=== PATIENT | female | born 1955 | race Caucasian/White ===

== ENCOUNTER 2024-03-31 23:39 | Inpatient (IN) | payer MEDICARE ==
[2024-04-01 01:30] VITALS: BMI 19.6
[2024-04-01] MEDS ORDERED: Acetaminophen 325 MG TAB PO PRN (01:51)
[2024-04-01] MEDS ORDERED: Lorazepam 2 MG/ML VIAL IM PRN (01:59)
[2024-04-01] MEDS ORDERED: Melatonin 3 MG TAB PO PRN (03:14)
[2024-04-01 05:07] LABS: #Basophils 0.03 10x3/uL (0.0-0.2); #Eosinophils Less than 0.03 10x3/uL (0.0-0.7); %Basophils 0.3 % (0.0-1.0); %Eosinophils 0.1 % (0.0-10.0); %Lymphocytes 19.1 % (21.0-51.0); %Monocytes 9.7 % (0.0-10.0); %Neutrophils 70.5 % (42.0-75.0); Hematocrit 44.7 % (36.0-47.0); Hemoglobin 15.3 g/dL (12.0-16.0); Mean Corpuscular HGB CONC 34.2 g/dL (32.0-36.0); Mean Corpuscular Hemoglobin 34.5 pg (27.0-31.0); Mean Corpuscular Volume 100.7 fL (78.0-98.0); Mean Platelet Volume 9.1 fL (7.4-10.4); Platelet Count 129 10x3/uL (130-400); RBC Distribution Width 13.3 % (11.5-14.5); Red Blood Cell (RBC) Count 4.44 mill/uL (4.20-5.40)
[2024-04-01 05:13] LABS: Prothrombin Time 13.2 sec (12.0-14.7)
[2024-04-01 05:14] LABS: PTT 34.9 sec (22.9-36.1)
[2024-04-01 05:45] LABS: Lactic Acid 1.52 mmol/L (0.5-2.2)
[2024-04-01 05:54] LABS: Anion Gap 16 mmol/L (10-20); BUN (Urea Nitrogen) 6 mg/dL (9.8-20.1); Calc. Creatinine Clearance 65 mL/min (70-130); Calcium 9.5 mg/dL (7.8-10.44); Carbon Dioxide 24 mmol/L (23-31); Chloride 104 mmol/L (98-107); Estimated GFR 73; Glucose 111 mg/dL (80-115); Potassium 4.1 mmol/L (3.5-5.1); Sodium 140 mmol/L (136-145)
[2024-04-01] MEDS: Thiamine HCl 200 MG/2 ML VIAL SLOW IVP SCH (06:09)
[2024-04-01] MEDS ORDERED: FLU (Fluad Triv) TS24-25 (65UP)/MF59C/PF 45 MCG/0.5 ML Syringe IM ONE (09:00)
[2024-04-01] MEDS: Folic Acid 1 MG TAB PO SCH (09:39)
[2024-04-01] MEDS: Enoxaparin 80 MG (0.8 mL) SYRINGE SC SCH (09:39)
[2024-04-01] MEDS: Multivit, Therapeutic 1 TAB PO SCH (09:39)
[2024-04-01 14:43] LABS: Prothrombin Time 13.2 sec (12.0-14.7)
[2024-04-01 14:44] LABS: PTT 39.5 sec (22.9-36.1)
[2024-04-01] MEDS: cefTRIAXone\\ROCEPHIN 1 GM in Sodium Chloride 0.9% 100 ML IVPB SCH (18:24)
[2024-04-02 04:44] LABS: Anion Gap 14 mmol/L (10-20); BUN (Urea Nitrogen) 7 mg/dL (9.8-20.1); Calc. Creatinine Clearance 81 mL/min (70-130); Calcium 9.7 mg/dL (7.8-10.44); Carbon Dioxide 23 mmol/L (23-31); Chloride 104 mmol/L (98-107); Estimated GFR 94; Glucose 84 mg/dL (80-115); Potassium 3.3 mmol/L (3.5-5.1); Sodium 138 mmol/L (136-145)
[2024-04-02 04:54] LABS: Prothrombin Time 13.6 sec (12.0-14.7)
[2024-04-02 04:55] LABS: PTT 37.2 sec (22.9-36.1)
[2024-04-02 05:07] LABS: #Basophils 0.03 10x3/uL (0.0-0.2); %Basophils 0.4 % (0.0-1.0); %Eosinophils 0.6 % (0.0-10.0); %Lymphocytes 25.5 % (21.0-51.0); %Monocytes 9.1 % (0.0-10.0); %Neutrophils 64.1 % (42.0-75.0); Hematocrit 41.6 % (36.0-47.0); Hemoglobin 14.2 g/dL (12.0-16.0); Mean Corpuscular HGB CONC 34.1 g/dL (32.0-36.0); Mean Corpuscular Hemoglobin 34.5 pg (27.0-31.0); Mean Platelet Volume 9.4 fL (7.4-10.4); Platelet Count 112 10x3/uL (130-400); RBC Distribution Width 13.2 % (11.5-14.5); Red Blood Cell (RBC) Count 4.12 mill/uL (4.20-5.40)
[2024-04-02] MEDS: Potassium Chloride 20 MEQ TAB PO SCH (09:40)
[2024-04-02] MEDS: Apixaban 5 MG TAB PO SCH (09:40)
[2024-04-02] MEDS ORDERED: Iopamidol-370 76% 500 ML MDV (1 ML CHARGE) ONE (10:28)
[2024-04-03 05:38] LABS: #Basophils 0.03 10x3/uL (0.0-0.2); %Basophils 0.5 % (0.0-1.0); %Eosinophils 1.4 % (0.0-10.0); %Lymphocytes 32.9 % (21.0-51.0); %Neutrophils 53.9 % (42.0-75.0); Hematocrit 41.5 % (36.0-47.0); Hemoglobin 13.9 g/dL (12.0-16.0); Mean Corpuscular HGB CONC 33.5 g/dL (32.0-36.0); Mean Corpuscular Hemoglobin 34.4 pg (27.0-31.0); Mean Corpuscular Volume 102.7 fL (78.0-98.0); Mean Platelet Volume 9.3 fL (7.4-10.4); Platelet Count 121 10x3/uL (130-400); RBC Distribution Width 12.8 % (11.5-14.5); Red Blood Cell (RBC) Count 4.04 mill/uL (4.20-5.40)
[2024-04-03 06:05] LABS: Anion Gap 12 mmol/L (10-20); BUN (Urea Nitrogen) 6 mg/dL (9.8-20.1); Calc. Creatinine Clearance 76 mL/min (70-130); Calcium 9.9 mg/dL (7.8-10.44); Carbon Dioxide 25 mmol/L (23-31); Chloride 104 mmol/L (98-107); Estimated GFR 87; Glucose 86 mg/dL (80-115); Potassium 3.4 mmol/L (3.5-5.1); Sodium 138 mmol/L (136-145)
[2024-04-03] MEDS: Potassium Chloride 20 MEQ TAB PO SCH (08:34)
[2024-04-03 16:22] VITALS: BP 138/75; TEMP 97.4
[2024-04-04] MEDS ORDERED: Thiamine 100 MG TAB PO SCH (09:00)
[2024-04-04 11:50] LABS: Cardiolipin IgA Ab 5.1 APL-U/mL (<14 Negative); Cardiolipin IgG Ab 0.8 GPL-U/mL (<10 Negative); Cardiolipin IgM Ab 1.4 MPL-U/mL (<10 Negative); EliA APS New Method **** NEW METHOD ****; beta-2-Glycoprotein I IgA Ab 3.4 U/mL (<7 Negative); beta-2-Glycoprotein I IgM Abs Less than 2.4 U/mL (<7 Negative)
[2024-04-09] MEDS ORDERED: Apixaban 5 MG TAB PO SCH (09:00)
== END 2024-04-03 18:11 | disposition home or self-care (01) | DRG 299 ==
LOC: 2NO 04-01 00:42
PROVIDERS: ADMIT Student in an Organized Health Care Education/Training Program; ATTEND Student in an Organized Health Care Education/Training Program
DX: I82.411 Acute embolism and thrombosis of right femoral vein (principal); I26.99 Other pulmonary embolism without acute cor pulmonale; N12 Tubulo-interstitial nephritis, not specified as acute or chronic; I82.431 Acute embolism and thrombosis of right popliteal vein; E78.5 Hyperlipidemia, unspecified; E87.6 Hypokalemia; R00.0 Tachycardia, unspecified; E55.9 Vitamin D deficiency, unspecified; F10.10 Alcohol abuse, uncomplicated; F17.210 Nicotine dependence, cigarettes, uncomplicated; Z90.49 Acquired absence of other specified parts of digestive tract
CPT/HCPCS: 36415; 74177; 80048; 81240; 81241; 83605; 85025; 85300; 85303; 85306; 85598; 85610; 85613; 85730; 86146; 86147; J0696; J1650; J3411